=== PATIENT | male | born 1995 | race Caucasian/White ===

== ENCOUNTER 2025-02-26 15:54 | Outpatient (REF) | payer OTHER, SELFPAY ==
[2025-02-26 22:29] LABS: Abs Immature Grans 0.01 10^3/uL (0.0-0.06); Absolute Basophil Count 0.03 10^3/uL (0.0-0.2); Absolute Eosinophil Count 0.09 10^3/uL (0.0-0.7); Absolute Lymphocyte Count 1.63 10^3/uL (1.2-3.4); Absolute Monocyte Count 0.39 10^3/uL (0.1-0.8); Absolute Neutrophil Count 3.58 10^3/uL (1.2-6.7); Basophils % 0.5 %; Eosinophils % 1.6 %; HCT 42.8 % (40.0-50.0); HGB 15.5 g/dL (13.5-17.5); Immature Grans % 0.2 %; Lymphocytes % 28.4 %; MCH 31.9 pg (27.0-33.0); MCHC 36.2 % (32.0-36.0); MCV 88 fL (80-95); MPV 11.2 fL (8.0-11.0); Monocytes % 6.8 %; Neutrophils % 62.5 %; Platelet Count 174 10^3/uL (130-400); RBC 4.86 10^6/uL (4.36-5.78); RDW 11.5 % (11.8-14.1); RDW-SD 36.5 fL; WBC 5.73 10^3/uL (4.4-10.8)
[2025-02-26 22:40] LABS: ALT 33 U/L (16-63); AST 21 U/L (15-37); Albumin 4.2 g/dL (3.4-5.0); Alkaline Phosphatase 55 U/L (46-116); Anion Gap 6.3 mmol/L (3-11); BUN 23 mg/dL (7-18); Bilirubin, Total 0.5 mg/dL (0.2-1.0); CO2 28.7 mmol/L (21.0-32.0); Calcium 9.2 mg/dL (8.5-10.1); Chloride 104 mmol/L (98-107); Estimated GFR 103.19 (mL/min/1.73m2); Glucose 94 mg/dL (74-106); Lipase 62 U/L (<78); Potassium 4.3 mmol/L (3.5-5.1); Sodium 139 mmol/L (136-145); Total Protein 7.2 g/dL (6.4-8.2)
[2025-02-28 11:27] LABS: Lyme Ab w Rflx to Lyme Confirm Negative (Negative)
[2025-03-02 13:50] LABS: Anaplasma phagocytophilum Negative (Negative); B. miyamotoi PCR Negative (Negative); Babesia divergens/MO-1 Negative (Negative); Babesia duncani Negative (Negative); Babesia microti Negative (Negative); Ehrlichia chaffeensis Negative (Negative); Ehrlichia ewingii/canis Negative (Negative); Ehrlichia muris eauclairensis Negative (Negative)
== END 2025-02-26 15:55 | disposition home or self-care (01) ==
LOC: LBN 15:54
PROVIDERS: Visit Provider Physician Assistant
DX: M25.511 Pain in right shoulder (principal)
CPT/HCPCS: 80053; 83690; 87798; 85025; 86618

== ENCOUNTER 2025-05-08 20:04 | Emergency (ER) | payer OTHER, SELFPAY ==
[2025-05-08 20:10] VITALS: BP 143/92; PULSE 83; RESP 20; TEMP 36.1; O2SAT 99
[2025-05-08] MEDS: Lidocaine/Epinephri/Tetracaine Topical Gel 3 ML TP (20:19)
[2025-05-08] MEDS: Cephalexin 500 MG CAP PO (20:19)
--- NOTE | 2025-05-08 20:35 | DI.RAD_ITS ---
Exam(s) XR FOREARM RT EXAM: XR FOREARM RT CLINICAL HISTORY: forearm injury. TECHNIQUE: 2D digital imaging was performed. Two views. COMPARISON: No exams were available for comparison FINDINGS: BONES: No acute fracture is present. No bony destructive lesion is seen. JOINTS: The visualized portions of the elbow and wrist joints are unremarkable. SOFT TISSUE: Posterior soft tissue swelling and soft tissue air proximally.. IMPRESSION: Posterior soft tissue wound. No evidence of fracture. The preliminary [facility] report was reviewed. DATA REPOSITORY: RADIATION DOSE DELIVERED:
[2025-05-08] MEDS: Mupirocin 2% Oint. 22 GM TUBE TP (21:08)
[2025-05-08 21:14] VITALS: BP 143/92; PULSE 83; RESP 20; TEMP 36.1; O2SAT 99
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
== END 2025-05-08 21:15 | disposition home or self-care (01) ==
PROVIDERS: Emergency Provider Emergency Medicine
DX: S40.811A Abrasion of right upper arm, initial encounter (principal); S51.811A Laceration without foreign body of right forearm, initial encounter; W26.8XXA Contact with other sharp object(s), not elsewhere classified, initial encounter; Y93.55 Activity, bike riding; Y92.482 Bike path as the place of occurrence of the external cause
CPT/HCPCS: 12002; 99283; 73090

== ENCOUNTER 2025-08-19 11:35 | Emergency (ER) | payer OTHER, SELFPAY ==
--- NOTE | 2025-08-19 11:30 | RT.EKG_ITS ---
APPROVED REPORT Exam: Resting ECG Reason for Exam: Chest pain Patient Location: E HR:68 bpm ECG Measurements Heart Rate 68 AXIS NJ 169 P 63 QRSd 92 QRS 42 QT 375 T 38 QTc 399 Conclusion Sinus rhythm...normal P axis, V-rate 60- 99 No Occlusion MA
[2025-08-19 11:37] VITALS: BP 141/83; PULSE 73; RESP 20; TEMP 36.7; O2SAT 98
--- NOTE | 2025-08-19 11:40 | ED.GENADUL_ITS ---
Discharge Plan Disposition Patient Disposition: Home Discharge Details Clinical Impression: Chest pain, unspecified Primary Care Provider: Unknown,Unknown ED Provider: Alex Diaz Home Meds and New Rx's Prescriptions: Discontinued mupirocin [Centany] 2 % ointment 1 applic topical BID Qty: 22 1RF Discharge Instructions Additional Instructions: You are seen Emergency Department for your chest pain. As we discussed your blood work showed no sign of any damage or heart. Your chest x-ray showed no acute processes. If you develop recurrent chest pain or chest pain that travels to your jaw is associated with sweating or if you pass out please return to the emergency department. Otherwise please try maintaining your regular exercise schedule. Stand Alone Forms: Portal Information HPI General Date/Time Provider Initiated Documentation: 08/19/25 11:40 . HPI Narrative: MDM This is an overall quite well-appearing normothermic and not tachycardic 30-year-old male with chest pain and nonischemic ECG for which he will undergo troponin testing. No pain out of proportion to suggest necrotizing soft tissue infection. No rash to chest to suggest zoster. No fevers nor cough to suggest pneumonia. No tearing quality to suggest aortic dissection. Patient has not been vomiting so my suspicion is low for esophageal rupture. No chest wall trauma to suggest pneumothorax. Soft nontender abdomen so doubt acute cholecystitis. Patient is not tachycardic nor hypotensive to suggest tamponade. I considered PE however patient is PERC negative so I did not send a D-dimer. I independently interpreted the patient's ECG which showed narrow complex normal sinus rhythm at a rate of 68. Intervals within normal limits. No acute injury pattern. 12:51 PM Comprehensive metabolic panel with reassuring LFTs. No LONNY. No acute electrolyte abnormalities. Normal reassuring lipase not consistent pancreatitis. Undetectable initial troponin. Given duration of time since symptoms began and reassuring undetectable troponin will defer additional troponin testing given low risk. HEART SCORE Chest pain Diagnostic Protocol: [-History/Physical/Gestalt: Slightly Suspicious (0)] [-EKG: Normal and/or unchanged from prior EKG (0)] [-AGE: less than 45 (0)] [- RISK FACTORS: 1 - 2 risk factors (+1)] [-TROPONIN: <= normal limit (0)] - TOTAL SCORE: 1 - Risk Factors: DM, current or recent smoker, HTN, HLD, family hx of CAD, obesity - INTERPRETATION: With a total score of 3 or less, risk of major cardiac event within six weeks 1.7%, likely lower with two negative troponins. [I explained to the patient that the risk of subsequent major cardiac event within 1 month is not 0, however risk predicted to be less than 2%. Patient verbalized understanding, accepts this risk and shared and the decision for discharge with PCP follow-up for further evaluation and management. They understand to return to the ED immediately with any worsening symptoms, new symptoms or other concerns.] 3:30 PM I met with the patient after his reassuring evaluation. He had a reassuring bedside echocardiogram. He was on a list to be seen by primary care provider but was not going to be seen for the next several months. I advised him that he could resume his normal activities. We discussed that he would like to increase the amount of activity he is able to get. He wants to resume his previous exercise schedule. 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 I advised him that he did not have any restrictions but that if he felt that the chest pain return was associated with any sweating or radiation into his arms or jaw that he should seek emergent care. Advised him that we are happy to reassess him at any point in the emergency department should his symptoms worsen. He understood his return indications and was dis charged with an empiric trial of expectant outpatient management. His blood pressure normalized in the ED without intervention. HPI This is a previously healthy 30-year-old male not on any routine medications arriving to the emergency department via private vehicle in the setting of intermittent chest pain for the past 2 weeks. The patient has been experiencing left-sided chest pain for approximately 1.5 weeks, which he attributes to work-related stress. The onset of the pain was sudden and more severe initially but has since subsided to a more manageable level. He describes the sensation as a constant pressure on the left side of his chest, occasionally accompanied by overall tension in the upper chest. The pain is consistently localized to the left side and does not radiate. He reports no recent weightlifting activities or any instances of trauma to the chest. He also reports no symptoms of nausea, vomiting, abdominal pain, shortness of breath, fever, or cough. He has observed an increase in his blood pressure readings, which he believes may be related to his level of physical activity. His last recorded blood pressure reading in 02/2025 was 120/78. He is not currently on an y antihypertensive medications. He does not have diabetes or high cholesterol. He maintains an active lifestyle, engaging in physical activities such as bike riding 5 to 6 days a week, although this has decreased over the past month. Exam General: Well-appearing in no acute distress speaking in complete sentences. Head: Normocephalic, atraumatic. Eye: Extraocular eye movements intact. No conjunctival injection. No scleral icterus. Ear, nose, mouth, throat: Grossly normal inspection. Normal voice, handling secretions normally. Neck: Trachea midline. Cardiovascular: Well-perfused distal extremities. Regular rate and rhythm. Chest wall: No rash to chest. Respiratory: Nonlabored respiration. Clear lungs bilaterally. Gastrointestinal: Nondistended abdomen. Musculoskeletal: No edema. Moving all 4 extremities spontaneously. Skin: Normal for age and race, grossly normal temperature and turgor. No acute rash. Neurologic: Alert and appropriate, no apparent acute deficits. Psychiatric: Mood and manner are appropriate. Grooming and personal hygiene are appropriate. Related Data Allergies Allergy/AdvReac Type Severity Reaction Status Date / Time No Known Allergies Allergy Verified 08/19/25 11:41 General Stated Complaint: Chest Pain CYN: 3 Course Vital Signs Vital signs: Vital Signs Temperature 36.7 C 08/19/25 11:37 Pulse 73 08/19/25 11:37 Respiratory Rate 20 08/19/25 11:37 Blood Pressure 141/83 H 08/19/25 11:37 Pulse Oximetry 98 08/19/25 11:37 Temperature 36.7 C 08/19/25 11:37 Temperature Source Oral 08/19/25 11:37 Pulse 73 08/19/25 11:37 Respiratory Rate 20 08/19/25 11:37 Blood Pressure 141/83 H 08/19/25 11:37 Blood Pressure Position Sitting 08/19/25 11:37 Pulse Oximetry 98 08/19/25 11:37 Oxygen Delivery Method Room Air 08/19/25 11:37 Oxygen Flow Rate 0 08/19/25 11:37 Pain Level 2 08/19/25 11:37 PFSH All Active Problems (Updated 08/19/25 @ 13:33 by Alex Diaz MD) Chest pain, unspecified (Acute) Abrasion of arm, right (Acute) Social History Smoking/Tobacco Use Status: Never Smoking risk assessment performed?: Yes Alcohol Intake: current Alcohol Intake frequency: a few times a month Drug use: Occasionally Substance use type: marijuana Do you feel safe at home: Yes Do you feel safe in your relationship?: Yes POCUS Exam (ED) Limited Cardiac Exam DATE OF EXAM: 08/19/25 TIME OF EXAM: 13:35 PROVIDER THAT PERFORMED THE STUDY: Alex Diaz IS THIS A REPEAT EXAM DURING THIS ENCOUNTER: no REASON FOR EXAM: Chest pain VISUALIZED STRUCTURES: Four Chambers, Left ventricle and LVOT VIEW OBTAINED: Apical 4-Chamber, Parasternal long-axis and Subxiphoid PERTINENT FINDINGS/IMPRESSION: No pericardial effusion and No RV dilation DIFFERENTIAL DIAGNOSES: Aortic outflow track less than 4 cm, good squeeze, RV less than LV, no significant pericardial effusion. Exam complete
--- NOTE | 2025-08-19 11:45 | DI.RAD_ITS ---
Exam(s) XR CHEST 2V PA LATERAL EXAM: XR CHEST 2V PA LATERAL CLINICAL HISTORY: Chest pain TECHNIQUE: 2D digital imaging was performed of the chest. Two images were obtained. PA and lateral views were obtained. COMPARISON: No exams were available for comparison FINDINGS: MEDIASTINUM: Normal. HEART: Normal. PULMONARY VASCULATURE: Normal. LUNGS: Clear. PLEURAL SPACE: No pleural effusion or pneumothorax. BONE:Within normal limits for the patient's age. OTHER FINDINGS:Normal. IMPRESSION: No acute pulmonary findings. DATA REPOSITORY: RADIATION DOSE DELIVERED:
[2025-08-19 12:20] LABS: Abs Immature Grans 0.01 10^3/uL (0.0-0.06); HCT 42.6 % (40.0-50.0); HGB 15.3 g/dL (13.5-17.5); Immature Grans % 0.1 %; MCH 31.1 pg (27.0-33.0); MCHC 35.9 % (32.0-36.0); MCV 87 fL (80-95); MPV 10.3 fL (8.0-11.0); Platelet Count 173 10^3/uL (130-400); RBC 4.92 10^6/uL (4.36-5.78); RDW 11.7 % (11.8-14.1); RDW-SD 36.9 fL; WBC 7.48 10^3/uL (4.4-10.8)
[2025-08-19 12:30] VITALS: RESP 18
[2025-08-19 12:42] LABS: ALT 35 U/L (16-63); AST 20 U/L (15-37); Albumin 4.3 g/dL (3.4-5.0); Alkaline Phosphatase 64 U/L (46-116); Anion Gap 9.2 mmol/L (3-11); BUN 15 mg/dL (7-18); Bilirubin, Total 0.6 mg/dL (0.2-1.0); CO2 28.8 mmol/L (21.0-32.0); Calcium 9.1 mg/dL (8.5-10.1); Chloride 101 mmol/L (98-107); Glucose 98 mg/dL (74-106); Lipase 53 U/L (<78); Potassium 4.0 mmol/L (3.5-5.1); Sodium 139 mmol/L (136-145); Total Protein 8.0 g/dL (6.4-8.2)
[2025-08-19 12:43] LABS: Troponin I < 4 ng/L (<or=76)
[2025-08-19 13:51] VITALS: BP 136/89; PULSE 61; RESP 14; O2SAT 100
== END 2025-08-19 13:54 | disposition home or self-care (01) ==
PROVIDERS: Emergency Provider Emergency Medicine
DX: R07.9 Chest pain, unspecified (principal); R03.0 Elevated blood-pressure reading, without diagnosis of hypertension
CPT/HCPCS: 99283; 99284; 36415; 80053; 83690; 93005; 93308; 71046; 84484; 85025; 93010